=== PATIENT | male | born 1990 | race Caucasian/White ===

== ENCOUNTER 2023-06-16 15:31 | Emergency (ER) | payer SELFPAY ==
[2023-06-16 15:38] VITALS: BP 146/79; PULSE 70; RESP 18; TEMP 97.6; BMI 21.9
== END 2023-06-16 16:27 | disposition home or self-care (01) ==
LOC: JER 15:31
DX: S92.425A Nondisplaced fracture of distal phalanx of left great toe, initial encounter for closed fracture (principal); W20.8XXA Other cause of strike by thrown, projected or falling object, initial encounter
CPT/HCPCS: 73660-TC-LT-FY; 99283-25